=== PATIENT | female | born 1990 | race Caucasian/White ===

== ENCOUNTER → 2018-02-05 19:09 | Outpatient (CLI) | payer BC, SELFPAY ==
[2018-02-08 12:03] LABS: HPV Reflexed? NOT INDICATED
== END ==
PROVIDERS: Visit Provider Obstetrics & Gynecology
DX: Z12.4 Encounter for screening for malignant neoplasm of cervix (principal)
CPT/HCPCS: 88175; G0145

== ENCOUNTER 2018-08-02 06:25 | Day surgery (SDC) | payer BC, SELFPAY ==
[2018-05-16 14:19] VITALS: BMI 29.3
[2018-07-10 15:36] VITALS: BMI 29.3
--- NOTE | 2018-08-01 23:25 | PCM.HP.BLA ---
History and Physical Date of Admission: 08/02/18 HISTORY OF PRESENT ILLNESS 27 year old woman presents with complaints of bilateral macromastia as well as associated painful symptomatology of neck pain, thoracic back pain, bilateral shoulder pain from shoulder grooving from the weight of her breasts on her bra straps, and inframammary intertrigo for which she uses powders for relief. She denies any trauma to her breasts. Denies any nipple discharge. She has been on a weight loss program with [employer] and has lost 12 lbs since January. She has not had a mammogram. She does not have a family history of breast cancer. We have received medical approval for her breast reduction surgery. The surgery is scheduled for 08/02/18. She presents today for a preop visit for any further questions she may have and to sign consents. PAST MEDICAL HISTORY Anxiety and depression Asthma Back problem Frequent headaches Vision problems PAST SURGICAL HISTORY tonsillectomy and adenoidectomy [place] teeth extracted ALLERGIES peanut shellfish lactose MEDICATIONS epinephrine injection levalbuterol HFA-actuation aerosol inhaler FAMILY HISTORY Mother - Anesthesia complication, Arthritis, Anxiety, Hypertension, High cholesterol Father - Asthma, Arthritis, Ankylosing spondylitis Grandfather - Alcoholism, Lung cancer, Prostate cancer, Esophageal cancer Grandmother - Diabetes, Hypertension SOCIAL HISTORY Smoking Status: Never smoker alcohol intake: current substance use type: does not use REVIEW OF SYSTEMS General - Denies fever, fatigue. Has 12 lbs weight loss since January. Eyes - Denies cataracts and glaucoma. ENT - Denies nasal congestion and sore throat. Endocrine - Denies excessive thirst and urination. Skin - Denies suspicious lesions and skin cancer. Has inframammary intertrigo for which she uses powders for relief. Musculoskeletal - Denies joint pain, joint stiffness, weakness of muscles and joints, and arthritis. Has neck pain and back pain. Her neck and back pain involve cervical and thoracic area. Has bilateral shoulder pain from shoulder grooving from the weight of her breasts on her bra straps. Neuro - Has headaches. Has lightheadedness. Cardiovascular - Denies chest pain and shortness of breath with exertion. Has fatigue and lightheadedness. Psych - Denies anxiety. Has depression. Respiratory - Denies shortness of breath and chronic cough. Has asthma. Gastrointestinal - Denies nausea, vomiting, diarrhea and constipation. Hematologic - Denies abnormal bruising and bleeding. Genitourinary - Denies hematuria. Has urinary frequency. PHYSICAL EXAMINATION General - Alert and oriented. Patient's bra size is 36 G. HEENT - PERRL. EOMI. Throat is clear. Neck - Supple. No bony tenderness. There is some pericervical soft tissue tenderness. Lungs- Clear to auscultation. Heart - Regular rate and rhythm. Breasts - Patient has bilateral macromastia. No breast masses palpable. No axillary adenopathy noted. Distance from midclavicular line on the left to the nipple is 26 cm and from the nipple to the inframammary fold is 11 cm. Distance from midclavicular line on the right to the nipple is 26 cm and from nipple to the inframammary fold is 10 cm. Nipple areolar complex diameter is 7 cm bilaterally. No active inframammary intertrigo noted at this time. Abdomen - Soft and non distended. Back - No bony tenderness noted. There is perivertebral soft tissue tenderness in the upper thoracic area. Extremities - FROM. No axillary adenopathy. Radial pulses are palpable. There is some bilateral shoulder tenderness with shoulder grooving from the weight of her breasts on her bra straps. Neuro - CN II-XII grossly intact. Psych - Normal and mood and affect. ASSESSMENT 1. Bilateral macromastia. 2. Neck pain. 3. Thoracic back pain. 4. Bilateral shoulder pain from shoulder grooving from the weight of the breasts on her bra straps. 5. Inframammary intertrigo. PLAN Discussed with the patient the procedure of breast reduction mammoplasty. I feel this procedure would be beneficial in this patient as it would help relieve her painful symptomatology. She will not need a mammogram preoperatively as she is only 27 years old. At some point postoperatively would like to get a breast reduction baseline mammogram. I would remove approximately 500 g of breast tissue per side. We will send the tissue to pathology for analysis to rule out carcinoma. Discussed with patient the extent of scarring for this procedure. The biggest risk for wound healing problems is the T-zone area. Usually wound care and sometimes antibiotics are necessary for healing in this area. She would have drains in for a few days depending on the amount of tissue that is removed. She will be on antibiotics until the drains are removed. Also discussed with the patient that a breast reduction procedure may make it difficult to breast feed in the future. She states that if she has children in the future and if she cannot breast feed, then she will bottle feed. In general, the final breast size ranges from a high B to a low C cup. In this patient it will be more in the range of a full C cup. Patient voices understanding. Surgery will be done under general anesthesia with a surgical observation overnight stay in the hospital. We wrote a letter to her insurance carrier for medical approval and have received medical approval. The surgery is scheduled for 08/02/18. Will have her off work for 2 weeks postoperatively, tentative. Patient was informed of the risks and complications of the procedure including alternatives to surgery. These were discussed with her personally. She voices understanding and wishes to proceed. Some of the risks and complications were included in a form from the [employer] [place] [employer].
[2018-08-02] VITALS (10 sets, daily range): BP systolic 91–133; BP diastolic 44–74; PULSE 62–103; RESP 14–18; TEMP 36.3–36.9; O2SAT 96–100; BMI 30.7
[2018-08-02 07:06] LABS: Internal QC Validated? YES +Cl - CLEAR BKGD; Pregnancy, Urine Negative Negative
[2018-08-02] MEDS: Cefazolin 2 GM in 0.9% Normal Saline 100 ML IV (07:55)
--- NOTE | 2018-08-02 08:00 | BR_PTH ---
PATIENT: BRONSON MINAYA LOC: [facility] [place] U#:[id number] AGE/SX: 27/F ROOM: RE08/02/[address]: Dr. Gavin Amaya MD : 1990 BED: DIS: 08/03/2018 SPEC #: [id number] RECD: 08/02/18 14:25 STATUS: WING MAYLIN #: [id number] CESIA: 08/02/18 08:[address]: Gavin Amaya DEPT: SURGICAL PATHOLOGY RECD BY: Antonio Hernández ENTERED: 08/02/18 14:32 SP TYPE: MAMOPLASTY OTHR DR: Dr. Nitish Pimentel MD Tissues: A - Right breast, NOS B - Left breast, NOS Procedures: Surgery Specimen Level IV HEADER OPERATION: Breast reduction mammoplasty PRE-OP DIAGNOSIS: Bilateral macromastia; neck pain; thoracic back pain; bilateral shoulder pain from shoulder grooving from weight of breasts on bra strap; inframammary intertrigo TISSUE SUBMITTED: A - Right breast, B - Left breast MICROSCOPIC DIAGNOSIS A. Right breast, reduction mammoplasty: Dense collagenized stroma. Focal intraductal hyperplasia without atypia. Minimal fibrocystic change. No evidence of malignancy. Skin with no pathologic change. B. Left breast, reduction mammoplasty: Dense collagenized stroma. Focal intraductal hyperplasia without atypia. Minimal fibrocystic change. No evidence of malignancy. Skin with no pathologic change. AM:jessica 08/06/18 MICROSCOPIC DESCRIPTION Slides are reviewed. GROSS DESCRIPTION A - Received in fixative is one container labeled with the patient's name and designated right breast. The specimen consists of multiple fragments fibroadipose tissue with a few of the pieces showing ugarte-white skin on the surface weighing in aggregate 605 gm and measuring in aggregate 24 x 22 x 5 cm. No skin lesion is identified. Sections reveal yellow adipose cut surfaces mixed with ugarte-white fibrous areas. No mass lesion is identified. [employer] Specialist sections are submitted in six cassettes. Cassette 6 also contains the skin piece. B - Received in fixative is one container labeled with the patient's name and designated left breast. The specimen consists of multiple fragments fibroadipose tissue with a few of the pieces showing ugarte-white skin on the surface weighing in aggregate 639 gm and measuring in aggregate 21 x 20 x 7 cm. No skin lesion is identified. Sections reveal yellow adipose cut surfaces mixed with ugarte-white fibrous areas. No mass lesion is identified. Equal [employer] Specialist sections are submitted in six cassettes. Cassette 6 also contains the skin piece. / LEELA:jessica 08/05/18 TC:5 CPT: 00884 x2
--- NOTE | 2018-08-02 14:24 | OP.PCM_ITS ---
Report of Operation Date of Procedure: 08/02/18 Pre-Operative Diagnosis: 1. Bilateral macromastia. 2. Neck pain. 3. T horacic back pain. 4. Bilateral shoulder pain from shoulder grooving from the weight of the breasts on her bra straps. 5. Inframammary intertrigo. Post-Operative Diagnosis: Same. Surgery/Procedure Performed:: Bilateral breast reduction mammaplasty. Description of Surgical Findings:: 27 year old woman presents with complaints of bilateral macromastia as well as associated painful symptomatology of neck pain, thoracic back pain, bilateral shoulder pain from shoulder grooving from the weight of her breasts on her bra straps, and inframammary intertrigo for which she uses powders for relief. She denies any trauma to her breasts. Denies any nipple discharge. She has been on a weight loss program with [employer] and has lost 12 lbs since January. She has not had a mammogram. She does not have a family history of breast cancer. We have received medical approval for her breast reduction surgery. Patient was informed of the risks and complications of the procedure including alternatives to surgery. These were discussed with the patient personally. Patient voices understanding and wishes to proceed. Some of the risks and complications were included in a form from the [place] [employer]. IV Fluids - 2800 ml. Urine Output - 500 ml. Tissue removed from the left breast - 612 grams. Tissue removed from the right breast - 558 grams. I used Glenn absorbable hemostat, (I used 2 vials, one in each breast). Reference Number - [id number]. Lot Number - [id number]. Expiration - May 01, 2023. microstrategy reports developer: Leana Deutsch. Type of Anesthesia:: General Specimen's removed: 1. Left breast tissue to Pathology. 2. Right breast tissue to Pathology. Drains: Tommy x2 (one in each breast). Estimated Blood Loss (mL): 150 ml. Fluids Replaced: 3300 ml. (IV Fluids 2800 ml, Urine Output 500 ml). Description of Procedure: The patient was taken to the operating room and in the sitting position, preoperative markings were made. The sternum midline was marked down to the umbilicus. The inframammary folds were marked bilaterally. The midclavicular line was then marked down to the nipple, then from the nipple to the inframammary fold. The inframammary fold was then superimposed on the midclavicular line and I made a point 1 cm below that to be the new position of the nipple-areolar complex. 7 cm lines were then drawn divergent from that point to encompass the nipple-areolar complex. The distance between the divergent lines was 10 cm. The patient was then placed in the supine position and placed under general anesthesia and her breasts were prepped and draped in usual fashion. SCDs were placed for DVT prophylaxis. Perioperative antibiotics were given intravenously. A Darden catheter was also placed. I then tattooed the preoperative markings with methylene blue and 25- gauge needle. I also tattooed the 12 o'clock position of the nipple-areolar complex to help with positioning of the nipple-areolar complex when it is brought through the keyhole incision at the end of the procedure to minimize kinking and twisting of the central breast mound pedicle. I then amanuel straight lines down from the lines drawn divergent around the nipple-areolar complex down to the inframammary fold. The width of the pedicle is 9 cm. I then used a 42 mm circular template for a new size of the nipple-areolar complex. The central markings were infiltrated with Xylocaine and epinephrine. The central skin was then deepithelialized. I started on the right side first and then went to the left side. I then mobilized medial and lateral breast flaps at the level of Bennie's fascia down to within a centimeter of the chest wall. This was met in the midline of the breast with dissection at the level of Bennie's fascia down to within a centimeter of the chest wall. Once the central breast mound pedicle was from the skin envelope, the reduction was then begun. Most of the tissue was removed from the superior aspect of the breast and the lateral aspect of the breast. I then sutured the leading edge of the medial and lateral breast flaps to the midline of the inframammary fold. The vertical incision was approximated using surgical clips. The excess tissue from the medial and lateral breast flaps were excised and the horizontal incision was approximated using surgical clips. The patient was then placed in a sitting position. Using a vertical limb length of 4.5 cm, I amanuel the new position of the new nipple-areolar complexes on both breasts. They were in good position on the central aspect of the breast mound. Good symmetry was noted between the left breast and the right breast. Good shape and contour and projection was noted and appeared clinically to be a C cup. The patient was then placed back in the supine position and the surgical clips were removed. The breast wounds were then irrigated with saline. Hemostasis was obtained using electrocautery. The tissue removed from the left breast was 612 grams. The tissue removed from the right breast was 558 grams. The tissue that was removed from the breasts was sent to Pathology for analysis to rule out carcinoma. After hemostasis was obtained using electrocautery, I then sprayed Glenn absorbable hemostat into both breast wounds. I used one vial for each side. I then placed a size 15 Tommy drain into each breast wound to be brought through the lateral aspect of the horizontal incision. I then closed the breast wounds by first approximating the leading edge of the medial and lateral breast flaps to the midline of the inframammary fold with 2-0 Vicryl suture. The deep dermis and subcutaneous tissue of the vertical incision and the horizontal incisions were approximated using 3-0 Monocryl interrupted sutures. The horizontal incision was then approximated using 4-0 V-Loc unidirectional barbed running subcuticular suture. I also placed a few 4-0 Prolene vertical mattress interrupted sutures at the level of the Tzone. The vertical incision was then closed on the skin with 4-0 Prolene interrupted sutures. With a vertical limb length of 4.5 cm, I amanuel a circular incision where the nipple-areolar complex would be brought through this keyhole incision. Incisions were made and the nipple areolar complex was brought through the keyhole incision. The 12 o'clock position of the nipple-areolar complex was lined up with the 12 o'clock position of the breast skin. The nipple-areolar complex was secured to the breast skin using 3-0 Monocryl interrupted sutures for deep dermis and subcutaneous tissue. The skin was approximated using 4-0 Prolene simple interrupted sutures. This was then covered with Histoacryl skin tissue adhesive. I sutured the drain to the skin using 3-0 nylon suture. At the end of procedure, the breasts were soft with no evidence of vascular compromise. No evidence of hematomas were noted. The nipples were viable. I then dressed the breasts with a Kerlix gauze and a surgical bra. The patient tolerated the procedure well and will be sent to the recovery room in satisfactory condition. She will be admitted for surgical observation overnight stay. She will go home tomorrow once she is tolerating oral pain medication. I will remove the drains in a few days. She will be maintained on antibiotics until the drains are removed. She will keep her head elevated during the initial postoperative period. She will be maintained on a lifting restriction and keep her head elevated during the initial postoperative period. Postoperatively, she may get a compression sports bra as well. She will have the Darden removed in the morning. She will be sent home on antibiotics and pain medicine for a few days. Sutures will be removed in 1-2 weeks. Grafts/Implants Used: None. - Complications None. - Admit VTE Documentation VTE Present on Admission: No VTE Mechan Device Prophylaxis: SCD's VTE Pharm Prophylaxis ordered?: Yes Code Visit Surgery Charges CPT - 81892 ICD-10 - N62, M54.2, M54.6, M25.519, L30.4 10773-14 N62, M54.2, M54.6, M25.519, L30.4
[2018-08-02] MEDS: Lactated Ringers 1,000 ML 60 ML IV (16:55)
[2018-08-02] MEDS: Cefazolin 1 GM/50 ML BAG IV ×2 (16:55→21:18)
[2018-08-02] MEDS: Ondansetron 4 MG/2 ML Vial IV (17:06)
[2018-08-02] MEDS: proMETHazine 25 MG Tablet PO (19:08)
[2018-08-02] MEDS: oxyCODONE 5 MG Tablet 10 MG PO (19:57)
[2018-08-02] MEDS: Docusate Sodium 100 MG Capsule PO (21:18)
[2018-08-03 02:27] VITALS: BP 100/47; PULSE 112; RESP 16; TEMP 37.1; O2SAT 99
[2018-08-03] MEDS: Enoxaparin 30 MG/0.3 ML Syringe SC (05:29)
[2018-08-03] MEDS: oxyCODONE 5 MG Tablet 10 MG PO ×2 (05:29→12:21)
[2018-08-03] MEDS: Cefazolin 1 GM/50 ML BAG IV (05:29)
[2018-08-03 05:30] VITALS: BP 100/47; PULSE 103; RESP 16; TEMP 37; O2SAT 100
[2018-08-03 07:31] LABS: Hematocrit 29.9 % (37-47); Hemoglobin 9.5 g/dl (12.0-15.0); Mean Corp Hgb Conc 31.8 g/gl (32-36); Mean Corpuscular Hgb 28.5 pg (27.0-32.0); Mean Corpuscular Volume 89.8 fL (81-99); Mean Platelet Vol. 9.6 fl (6.2-12.0); Platelet Count 247 K/mm3 (150-450); RBC Distribution Width CV 12.6 % (11.6-14.6); RBC Distribution Width SD 40.6 fl (35.1-43.9); Red Blood Count 3.33 M/mm3 (4.2-5.4); White Blood Count 11.6 K/mm3 (4.4-11.0)
[2018-08-03 07:35] LABS: Scan Indicated on CBC? Y/N NO
[2018-08-03 07:57] LABS: Prealbumin 16.9 mg/dL (20.0-40.0)
[2018-08-03 08:37] VITALS: BP 104/57; PULSE 116; RESP 18; TEMP 36.8; O2SAT 100
[2018-08-03] MEDS: Docusate Sodium 100 MG Capsule PO (08:40)
[2018-08-03] MEDS: Lactated Ringers 1,000 ML 60 ML IV (10:11)
--- NOTE | 2018-08-03 13:04 | PCM.PN.SRG ---
Subjective: Postop #1 Patient is resting comfortably. - Physical Exam General: Alert, Oriented x3 HEENT: PERRLA, EOMI Oral: Moist Mucosa Neck: Supple Abdomen: Soft, Non-Distended Skin: Incision - Breast incisions are dry and intact. Breasts are soft and symmetrical. Nipples are viable. Good breast contour noted. No clinical evidence of a hematoma. Neurological: Cranial nerves II-XII grossly intact Psych/Mental Status: Normal Affect, Appropriate Vital Signs Temp Pulse Resp BP Pulse Ox 98.3 F 116 H 18 104/57 L 100 08/03/18 08:37 08/03/18 08:37 08/03/18 08:37 08/03/18 08:37 08/03/18 08:37 Oxygen Delivery Method Room Air Weight: 168 lb 3.403 oz Body Mass Index (BMI) 30.7 Intake and Output for Last 24 Hours 08/01/18 08/02/18 08/03/18 23:59 23:59 23:59 Intake Total 4242 / 4242 490 / 490 Output Total 562 / 562 455 / 455 Balance 3680 / 3680 35 / 35 Drainage 112 ml yesterday, 30 ml today. Laboratory Tests Past 24 Hrs 08/03/18 08/03/18 07:10 07:10 WBC 11.6 H RBC 3.33 L Hgb 9.5 L Hct 29.9 L MCV 89.8 MCH 28.5 MCHC 31.8 L RDW 12.6 RDW Differential 40.6 Plt Count 247 MPV 9.6 Prealbumin 16.9 L Medical Necessity - Tobacco Use Smoking Status: Never smoker Tobacco Use: Non-smoker Assessment/Plan 1. Bilateral macromastia. 2. Neck pain. 3. Thoracic back pain. 4. Bilateral shoulder pain from shoulder grooving from the weight of the breasts on her bra straps. 5. Inframammary intertrigo. 6. s/p bilateral breast reduction mammaplasty. Patient is tolerating po analgesia. Breast incisions are dry and intact. Breasts are soft and symmetrical. Nipples are viable. Good breast contour noted. No clinical evidence of hematoma. Prealbumin was 16.9. Encourage nutritional supplementation with protein to help the healing process. Darden catheter was removed today. Patient is voiding without difficulty. Discharge home today. Will remove the drains in the office on Sunday. Keep head elevated. Continue lifting restriction. No showering until the drains are removed in the office. Wrote script for Cefadroxil for 5 days. Wrote script for Percocet for pain (50 tabs). Wrote scripts for Phenergan for nausea (30 tabs) and a refill and for Colace for constipation (60 tabs). Followup office Sunday08/05/18 for drain removal.
--- NOTE | 2018-08-03 13:08 | PCM.DC ---
You will use the following diet at home:: No restrictions Discharge Activity: May not drive while taking narcotic pain medications., May Not Shower - until the drains are removed., - - keep head elevated. no heavy lifting. May shower in (days): 2 - after the drains are removed in the office. May resume sexual activity in: No Restrictions Weight Bearing Status: Weight bearing as tolerated Lifting Restrictions: 20 lbs. Keep extremity elevated above heart level: - - elevate head. Call your doctor if your incision/area has: Continuous Slow Oozing, Sudden Increased Bleeding, Increased Pain/ Swelling, Increased Redness, Foul Smelling Discharge, Swelling at the incision site, - - black nipples. Call your doctor if you observe: Fever of 101 or Higher, Coldness, Increased Pain, Shortness of breath, Chest pain, Calf discomfort, Uncontrolled pain Suture Line Care: - - dry dressings daily. Change Dressing in (Days):: 1 Cleanse incision/area with: - - may get incisions wet in the shower after the drains are removed in the office. Drain: Suction - shan drain x2 to bulb suction. empty and record output daily. Allergies/Adverse Reactions: Allergies peanut Allergy (Severe, Verified 08/02/18 17:03) Anaphylaxis shellfish derived Allergy (Severe, Verified 08/02/18 17:03) Anaphylaxis lactose Adverse Reaction (Mild, Verified 08/02/18 17:03) Abd cramps/diarrhea Medications to take at Discharge epinephrine 0.3 mg/0.3 mL injection, auto-injector 0.3 mg IM ONCE 05/13/18 levalbuterol HFA 45 mcg/actuation aerosol inhaler 4 puff INHALATION Q20M PRN 05/13/18 Albuterol Aerosols [Ventolin Aerosols] 2.5 mg INHALATION Q4H PRN vial.neb. 08/03/18 Cefadroxil [Duracef] 500 mg PO BID #10 cap 08/03/18 Docusate Sodium [Colace] 100 mg PO BID #60 cap 08/03/18 Oxycodone HCl/Acetaminophen [Percocet 5/325] 1 - 2 tab PO 4X/DAY PRN PRN 7 Days #50 tab 08/03/18 proMETHazine tablet [Phenergan tablet] 25 mg PO 4X/DAY PRN PRN #30 tab 08/03/18 The following prescriptions were given: Oxycodone HCl/Acetaminophen [Percocet 5/325] 1 - 2 tab PO 4X/DAY PRN PRN 7 Days #50 tab PRN Reason: Pain proMETHazine tablet [Phenergan tablet] 25 mg PO 4X/DAY PRN PRN #30 tab PRN Reason: NAUSEA/VOMITING Cefadroxil [Duracef] 500 mg PO BID #10 cap Docusate Sodium [Colace] 100 mg PO BID #60 cap Primary Care Physician: Nitish Pimentel MD [Primary Care Provider] - Test Results: Test results from this visit will be discussed in further detail at your follow-up appointment, if applicable. Please Follow Up With: Gavin Amaya MD When: sunday08/05/18. call [phone] for appt time. Proposed Discharge Date: 08/03/18
--- NOTE | 2018-08-03 13:11 | DCINST_ITS ---
You will use the following diet at home:: No restrictions Discharge Activity: May not drive while taking narcotic pain medications., May Not Shower - until the drains are removed., - - keep head elevated. no heavy lifting. May shower in (days): 2 - after the drains are removed in the office. May resume sexual activity in: No Restrictions Weight Bearing Status: Weight bearing as tolerated Lifting Restrictions: 20 lbs. Keep extremity elevated above heart level: - - elevate head. Call your doctor if your incision/area has: Continuous Slow Oozing, Sudden Increased Bleeding, Increased Pain/ Swelling, Increased Redness, Foul Smelling Discharge, Swelling at the incision site, - - black nipples. Call your doctor if you observe: Fever of 101 or Higher, Coldness, Increased Pain, Shortness of breath, Chest pain, Calf discomfort, Uncontrolled pain Suture Line Care: - - dry dressings daily. Change Dressing in (Days):: 1 Cleanse incision/area with: - - may get incisions wet in the shower after the drains are removed in the office. Drain: Suction - shan drain x2 to bulb suction. empty and record output daily. Allergies/Adverse Reactions: Allergies peanut Allergy (Severe, Verified 08/02/18 17:03) Anaphylaxis shellfish derived Allergy (Severe, Verified 08/02/18 17:03) Anaphylaxis lactose Adverse Reaction (Mild, Verified 08/02/18 17:03) Abd cramps/diarrhea Medications to take at Discharge epinephrine 0.3 mg/0.3 mL injection, auto-injector 0.3 mg IM ONCE 05/13/18 levalbuterol HFA 45 mcg/actuation aerosol inhaler 4 puff INHALATION Q20M PRN 05/13/18 Albuterol Aerosols [Ventolin Aerosols] 2.5 mg INHALATION Q4H PRN vial.neb. 08/03/18 Cefadroxil [Duracef] 500 mg PO BID #10 cap 08/03/18 Docusate Sodium [Colace] 100 mg PO BID #60 cap 08/03/18 Oxycodone HCl/Acetaminophen [Percocet 5/325] 1 - 2 tab PO 4X/DAY PRN PRN 7 Days #50 tab 08/03/18 proMETHazine tablet [Phenergan tablet] 25 mg PO 4X/DAY PRN PRN #30 tab 08/03/18 The following prescriptions were given: Oxycodone HCl/Acetaminophen [Percocet 5/325] 1 - 2 tab PO 4X/DAY PRN PRN 7 Days #50 tab PRN Reason: Pain proMETHazine tablet [Phenergan tablet] 25 mg PO 4X/DAY PRN PRN #30 tab PRN Reason: NAUSEA/VOMITING Cefadroxil [Duracef] 500 mg PO BID #10 cap Docusate Sodium [Colace] 100 mg PO BID #60 cap Primary Care Physician: Nitish Pimentel MD [Primary Care Provider] - Test Results: Test results from this visit will be discussed in further detail at your follow- up appointment, if applicable. Please Follow Up With: Gavin Amaya MD When: sunday08/05/18. call [phone] for appt time. Proposed Discharge Date: 08/03/18
[2018-08-03 13:28] VITALS: BP 97/54; PULSE 113; RESP 18; TEMP 36.7; O2SAT 100
[2018-08-03 13:40] VITALS: BP 97/54; PULSE 113; RESP 18; TEMP 36.7; O2SAT 100
== END 2018-08-03 13:42 | disposition home or self-care (01) ==
LOC: SDC 06:33 → AC 06:34 → MS2 14:23
PROVIDERS: Anesthesiology; Family Provider Internal Medicine; PCP Internal Medicine; Referring Provider Surgery; Visit Provider Surgery
PROC: 0H0U0ZZ Alteration of Left Breast, Open Approach (ICD-10-PCS; CPT 19318; principal; 2018-08-02 07:45)
DX: N62 Hypertrophy of breast (principal); M54.2 Cervicalgia; M54.6 Pain in thoracic spine; M25.512 Pain in left shoulder; M25.511 Pain in right shoulder; L30.4 Erythema intertrigo; J45.909 Unspecified asthma, uncomplicated
CPT/HCPCS: 19318; 36415; 81025; 84134; 85027; 88305; J7120; J2405

== ENCOUNTER → 2018-09-04 18:08 | Outpatient (CLI) | payer BC, SELFPAY ==
[2018-09-04 15:33] VITALS: BMI 30.7
== END ==
PROVIDERS: Family Provider Internal Medicine; PCP Internal Medicine; Referring Provider Nurse Practitioner Family; Visit Provider Nurse Practitioner Family
DX: T81.89XA Other complications of procedures, not elsewhere classified, initial encounter (principal); L30.4 Erythema intertrigo; N62 Hypertrophy of breast
CPT/HCPCS: 87070; 87077; 87186; 87205